=== PATIENT | female | born 1960 | race American Indian/Alaskan Native ===

== ENCOUNTER 2019-02-08 01:24 | Emergency (ER) | payer BC, OTHER ==
[2019-02-08 02:41] LABS: BUN/Creatinine Ratio 16; Blood Urea Nitrogen 14 mg/dL (7-17); Calcium 9.1 mg/dL (8.4-10.2); Hemolysis Index 25
[2019-02-08] MEDS ORDERED: MECLIZINE 25 MG TAB PO ONE (02:41)
[2019-02-08 02:59] LABS: Hematocrit 37.7 % (30.3-42.9); Hemoglobin 12.3 gm/dl (10.1-14.3); Mean Corpuscular HGB Conc 33 % (30-34); Mean Corpuscular Volume 88 fl (79-97); Platelet Count 353 K/mm3 (140-440); Red Blood Count 4.29 M/mm3 (3.65-5.03); Red Cell Distribution Width 15.1 % (13.2-15.2)
--- NOTE | 2019-02-08 03:04 | Emergency Department Report ---
<AZAEL RENEEEllie - Last Filed: 02/08/19 03:16> ED Dizziness HPI - General Chief Complaint: Dizziness Stated Complaint: LIGHTHEADED Time Seen by Provider: 02/08/19 02:04 Source: patient Mode of arrival: Ambulatory Limitations: No Limitations - History of Present Illness Initial Comments: 58-year-old female, no past medical history, presents to ED with dizziness 2 weeks. Patient states dizziness and lightheadedness is worse when going from sitting to standing. States it is better when eating. Patient also reports a component of feeling off balance as well. She denies headache, vision changes, fever, nausea or vomiting. She reports she has been working 2 jobs, reports generalized weakness as well. Patient denies any chest pain or shortness of breath. MD Complaint: dizziness, lightheadedness -: week(s) (2) Description: lightheadedness, off-balance History of Same: No History of Trauma: No Severity: moderate Improves With: remaining still, rest Worsens With: other (standing and walking) Associated Symptoms: denies: chest pain, cough, fever/chills, shortness of breath, syncope - Related Data Home Medications Medication Instructions Recorded Confirmed Last Taken Estrogens,Esterified [Menest] mg PO 12/20/12 12/20/12 12/19/12 Progesterone, Micronized mg PO 12/20/12 12/20/12 12/19/12 [Progesterone] Previous Rx's Medication Instructions Recorded Last Taken Type HYDROcodone/APAP 5-325 [[place] 1 each PO Q6HR PRN #12 tablet 12/20/12 Unknown Rx 5/325 mg] Meclizine [Antivert] 25 mg PO TID PRN #20 tablet 02/08/19 Unknown Rx Allergies Allergy/AdvReac Type Severity Reaction Status Date / Time No Known Allergies Allergy Unverified 12/20/12 00:06 ED Review of Systems Comment: All other systems reviewed and negative Constitutional: denies: chills, fever Respiratory: denies: shortness of breath Cardiovascular: denies: chest pain, palpitations Gastrointestinal: denies: nausea, vomiting Neurological: vertigo. denies: headache, numbness, paresthesias ED Past Medical Hx - Past Medical History Previous Medical History?: No - Surgical History Past Surgical History?: No - Social History Smoking Status: Never Smoker Substance Use Type: None - Medications Home Medications: Home Medications Medication Instructions Recorded Confirmed Last Taken Type Estrogens,Esterified [Menest] mg PO 12/20/12 12/20/12 12/19/12 History HYDROcodone/APAP 5-325 [[place] 1 each PO Q6HR PRN #12 tablet 12/20/12 Unknown Rx 5/325 mg] Progesterone, Micronized mg PO 12/20/12 12/20/12 12/19/12 History [Progesterone] Meclizine [Antivert] 25 mg PO TID PRN #20 tablet 02/08/19 Unknown Rx ED Physical Exam - General Limitations: No Limitations General appearance: alert, in no apparent distress - Head Head exam: Present: atraumatic, normocephalic - Eye Eye exam: Present: normal appearance, PERRL, EOMI - ENT ENT exam: Present: mucous membranes moist - Neck Neck exam: Present: normal inspection - Respiratory Respiratory exam: Present: normal lung sounds bilaterally. Absent: respiratory distress - Cardiovascular Cardiovascular Exam: Present: regular rate, normal rhythm - GI/Abdominal GI/Abdominal exam: Present: soft. Absent: distended, tenderness - Extremities Exam Extremities exam: Present: normal inspection - Neurological Exam Neurological exam: Present: alert, oriented X3, CN II-XII intact, normal gait. Absent: motor sensory deficit - Psychiatric Psychiatric exam: Present: normal affect, normal mood - Skin Skin exam: Present: warm, dry, intact, normal color ED Medical Decision Making - Lab Data Result diagrams: 02/08/19 02:10 02/08/19 02:10 - EKG Data -: EKG Interpreted by Ct EKG shows normal: sinus rhythm, axis, intervals, QRS complexes, ST-T waves Rate: normal - EKG Data Interpretation: no acute changes - Radiology Data Radiology results: report reviewed, image reviewed ED Disposition Clinical Impression: Dizziness Disposition: DC-01 TO HOME OR SELFCARE Condition: Stable Instructions: Benign Paroxysmal Positional Vertigo (ED) Prescriptions: Meclizine [Antivert] 25 mg PO TID PRN #20 tablet PRN Reason: Vertigo Referrals: PRIMARY CARE, [Primary Care Provider] - 3-5 Days <DARIANA NETTLES - Last Filed: 02/08/19 05:00> ED Review of Systems ROS: Stated complaint: LIGHTHEADED Other details as noted in HPI ED Course Vital Signs 02/08/19 02/08/19 01:32 03:16 Temperature 98.4 F 97.5 F L Pulse Rate 63 57 L Respiratory 14 17 Rate Blood Pressure 165/57 Blood Pressure 146/64 [Right] O2 Sat by Pulse 97 99 Oximetry ED Medical Decision Making - Lab Data Result diagrams: 02/08/19 02:10 02/08/19 02:10 - Radiology Data Ordering Physician: AZAEL RENEE MD Date of Service: 02/08/19 Procedure(s): CT head/brain wo con Accession Number(s): [id number] cc: AZAEL RENEE MD CT HEAD WITHOUT CONTRAST INDICATION: MAIN: HEADACHE, BLURRED VISION, dizziness , blurred vision, dizziness TECHNIQUE: All CT scans at this location are performed using CT dose reduction for ALARA by means of automated exposure control. COMPARISON: None available. FINDINGS: BRAIN: No hemorrhage or mass effect are seen. No evidence of acute infarction is noted. ORBITS: Normal as visualized. SOFT TISSUES OF HEAD: Normal. CALVARIUM: Normal. VISUALIZED PARANASAL SINUSES AND MASTOID AIR CELLS: Clear. ADDITIONAL FINDINGS: None. IMPRESSION: No acute intracranial abnormality. Signer Name: Ghassan Lu MD Signed: 02/08/2019 3:48 AM Workstation Name: [id number] Transcribed By: LESLIE Dictated By: Ghassan Lu MD Electronically Authenticated By: Ghassan Lu MD Signed Date/Time: 02/08/19347 DD/ 4 TD/TT: Ordering Physician: AZAEL RENEE MD Date of Service: 02/08/19 Procedure(s): XR chest routine 2V Accession Number(s): [id number] cc: AZAEL RENEE MD Fluoro Time In Minutes: CHEST 2 VIEWS 0223 INDICATION / CLINICAL INFORMATION: gen weakness COMPARISON: None available. FINDINGS: SUPPORT DEVICES: None. HEART / MEDIASTINUM: No significant abnormality. LUNGS / PLEURA: No significant pulmonary or pleural abnormality. No pneumothorax. ADDITIONAL FINDINGS: No significant additional findings. IMPRESSION: No significant acute abnormality Signer Name: Ghassan Lu MD Signed: 02/08/2019 3:59 AM Workstation Name: [id number] Transcribed By: GJ Dictated By: Ghassan Lu MD Electronically Authenticated By: Ghassan Lu MD Signed Date/Time: 02/08/19358 DD/ 8 - Medical Decision Making ct head normal, no mass , no bleed, no abnormality, cxr: normal no infiltrates , no opacites, pt symptoms improved, will dc to home in stable to condition , pt is a/o x 3, ambulatory with steady gait, will follow up with pcp in 2-3 days. pt verbalized agreement and understanding of discharge plan. Critical care attestation.: If time is entered above; I have spent that time in minutes in the direct care of this critically ill patient, excluding procedure time. ED Disposition Is pt being admited?: No Does the pt Need Aspirin: No
[2019-02-08 03:16] VITALS: BP 146/64
[2019-02-08 03:24] LABS: Bacteria,Urine 1+ /HPF (Negative); Bilirubin,Urine NEG (Negative); Blood,Urine MOD (Negative); Color,Urine Yellow (Yellow); Mucus,Urine FEW /HPF; Protein,Urine <15 mg/dL mg/dL (Negative)
--- NOTE | 2019-02-08 03:53 | Cat Scan Report ---
CT HEAD WITHOUT CONTRAST INDICATION: MAIN: HEADACHE, BLURRED VISION, dizziness , blurred vision, dizziness TECHNIQUE: All CT scans at this location are performed using CT dose reduction for ALARA by means of automated exposure control. COMPARISON: None available. FINDINGS: BRAIN: No hemorrhage or mass effect are seen. No evidence of acute infarction is noted. ORBITS: Normal as visualized. SOFT TISSUES OF HEAD: Normal. CALVARIUM: Normal. VISUALIZED PARANASAL SINUSES AND MASTOID AIR CELLS: Clear. ADDITIONAL FINDINGS: None. IMPRESSION: No acute intracranial abnormality. Signer Name: Ghassan Lu MD Signed: 02/08/2019 3:48 AM Workstation Name: [id number]
--- NOTE | 2019-02-08 04:03 | XRay Report ---
CHEST 2 VIEWS 0223 INDICATION / CLINICAL INFORMATION: gen weakness COMPARISON: None available. FINDINGS: SUPPORT DEVICES: None. HEART / MEDIASTINUM: No significant abnormality. LUNGS / PLEURA: No significant pulmonary or pleural abnormality. No pneumothorax. ADDITIONAL FINDINGS: No significant additional findings. IMPRESSION: No significant acute abnormality Signer Name: Ghassan Lu MD Signed: 02/08/2019 3:59 AM Workstation Name: [id number]
[2019-02-08 05:08] LABS: Total Cells Counted 100
[2019-02-08 05:09] LABS: Anisocytosis Few; Large Platelets Few; Ovalocytes Few
[2019-02-08 05:10] LABS: Platelet Estimate Consistent w Auto
== END 2019-02-08 05:50 | disposition home or self-care (01) ==
LOC: ED 01:24
DX: R42 Dizziness and giddiness (principal); Z79.899 Other long term (current) drug therapy
CPT/HCPCS: 36415; 70450; 71046; 80048; 81001; 84484; 85007; 85025; 93005; 93010